=== PATIENT | male | born 2000 | race Caucasian/White ===

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

== ENCOUNTER 2019-01-13 05:40 | Outpatient (CLI) | payer BC ==
[~2019-01-13] VITALS: Ht 173 cm; Wt 66.4 kg
[2019-01-13] MEDS ORDERED: PROP10TA8 PO (13:13)
[2019-01-13] MEDS ORDERED: ONDA4TAB11 PO (13:13)
[2019-01-13] MEDS ORDERED: LITH150C PO (13:13)
[2019-01-13] MEDS ORDERED: NF-LAMO200 PO (13:13)
[2019-01-14] MEDS ORDERED: OMEP20CA13 PO (10:23)
== END 2019-01-13 13:16 | disposition home or self-care (01) ==
LOC: PREOP 05:40
PROVIDERS: ATTEND Internal Medicine
DX: Z01.818 Encounter for other preprocedural examination (principal)

== ENCOUNTER → 2019-02-08 | Outpatient (CLI) | payer BC ==
[~2019-02-08] MED LIST changes: +LITH150C PO; +NF-LAMO200 PO; +OMEP20CA13 PO; +ONDA4TAB11 PO; +PROP10TA8 PO
--- NOTE | 2019-02-08 13:43 | Diagnostic Imaging Report ---
Exam: Nuclear medicine gastric emptying study. Date: February 08, 2019. Indication: 18-year-old male, nausea and vomiting. Comparison: None. Findings: 1.04 mCi of technetium labeled sulfur colloid was administered. Subsequent anterior and posterior scintigraphic images of the stomach were obtained over a 4 hour timeframe for calculation of gastric emptying. At 1 hour, there is approximately 73% gastric emptying. At 2 hours, there is approximately 98% gastric emptying. At 3 hours, there is approximately 99% gastric emptying. At 4 hours, there is approximately 99% gastric emptying. Impression: 1. Findings consistent with rapid gastric emptying. Dictated by: Dictated on workstation # [id number]
== END ==
LOC: CARD 08:45
PROVIDERS: ATTEND Internal Medicine
DX: I10 Essential (primary) hypertension (principal); R11.2 Nausea with vomiting, unspecified
CPT/HCPCS: 78264

== ENCOUNTER → 2019-02-16 | Outpatient (CLI) | payer BC ==
--- NOTE | 2019-02-16 08:51 | Diagnostic Imaging Report ---
PROCEDURE: US Gallbladder. TECHNIQUE: Multiple real-time grayscale images were obtained over the right upper quadrant in various projections. INDICATION: Nausea and vomiting. FINDINGS: Liver is normal in size. There is no biliary ductal dilatation. Common bile duct measures less than 4 mm. Gallbladder is somewhat contracted. Gallbladder wall is upper limits of normal in thickness at 3 mm. There is no cholelithiasis or pericholecystic fluid. Visualized portions of the pancreas are unremarkable. Right kidney is normal. There is no ascites. IMPRESSION: Essentially unremarkable right upper quadrant ultrasound. Dictated by: Dictated on workstation # [id number]
== END ==
LOC: RAD 07:18
PROVIDERS: ATTEND Internal Medicine
DX: R11.2 Nausea with vomiting, unspecified (principal)
CPT/HCPCS: 76705

== ENCOUNTER → 2019-02-17 | Outpatient (CLI) | payer BC ==
[~2019-02-17] MED LIST changes: +CATHETER FLUSH 10 ML SYR IV PRN
--- NOTE | 2019-02-17 15:12 | Diagnostic Imaging Report ---
INDICATION: Abdominal pain. TECHNIQUE: Patient was administered 5.0 mCi of technetium-99m Choletec intravenously and imaging over the abdomen was performed. At one hour, patient ingested one can of Ensure and a gallbladder ejection fraction was calculated. FINDINGS: There is homogeneous uptake of activity by the liver. There is prompt excretion of activity into the common duct and gallbladder. Normal passage of activity into the small bowel is noted. Gallbladder ejection fraction is normal at 55%. IMPRESSION: Normal HIDA scan and gallbladder ejection fraction. Dictated by: Dictated on workstation # [id number]
== END ==
LOC: CARD 11:29
PROVIDERS: ATTEND Internal Medicine
DX: R10.11 Right upper quadrant pain (principal); R11.2 Nausea with vomiting, unspecified
CPT/HCPCS: 78227